=== PATIENT | female | born 1950 | race Two or more races ===

== ENCOUNTER 2019-01-21 13:57 | Outpatient (CLI) | payer OTHER ==
[~2019-01-21 13:57] MED LIST: DIGITEK250 MCG PO; LEXAPRO5 MG PO; LOPRESSOR5 MG/5 ML IV; PRILOSEC10 MG PO
== END 2019-01-21 13:59 | disposition home or self-care (01) ==
LOC: MAMO-SONO 13:57
DX: Z12.31 Encounter for screening mammogram for malignant neoplasm of breast (principal); Z87.898 Personal history of other specified conditions; N64.4 Mastodynia; N95.1 Menopausal and female climacteric states; Z78.9 Other specified health status; Z78.0 Asymptomatic menopausal state; N60.11 Diffuse cystic mastopathy of right breast; N60.12 Diffuse cystic mastopathy of left breast; R92.2 Inconclusive mammogram

== ENCOUNTER → 2019-08-09 | Outpatient (CLI) | payer OTHER | END | disposition home or self-care (01) | LOC: RAD 09:51 | DX: M79.644 Pain in right finger(s) (principal) ==

== ENCOUNTER 2020-11-16 15:09 | Outpatient (CLI) | payer OTHER | END 2020-11-16 15:15 | disposition HB | LOC: RAD 15:09 | PROVIDERS: ATTEND Orthopaedic Surgery | DX: M25.812 Other specified joint disorders, left shoulder (principal); M25.512 Pain in left shoulder; M79.622 Pain in left upper arm ==

== ENCOUNTER 2020-12-01 10:34 | Outpatient (CLI) | payer OTHER | END 2020-12-01 10:38 | disposition home or self-care (01) | LOC: NUCLEAR 10:34 | PROVIDERS: ATTEND Orthopaedic Surgery | DX: M81.0 Age-related osteoporosis without current pathological fracture (principal) ==

== ENCOUNTER 2021-09-11 10:40 | Outpatient (CLI) | payer OTHER | END 2021-09-11 10:50 | disposition home or self-care (01) | LOC: RAD 10:40 | PROVIDERS: ATTEND Internal Medicine | DX: I10 Essential (primary) hypertension (principal); Z01.810 Encounter for preprocedural cardiovascular examination; E66.8 Other obesity; M54.59 Other low back pain; K80.12 Calculus of gallbladder with acute and chronic cholecystitis without obstruction; K80.20 Calculus of gallbladder without cholecystitis without obstruction; E78.89 Other lipoprotein metabolism disorders ==

== ENCOUNTER 2021-09-14 09:42 | Outpatient (CLI) | payer OTHER | END 2021-09-14 09:50 | disposition home or self-care (01) | LOC: SONOGRAMA 09:42 | PROVIDERS: ATTEND Internal Medicine | DX: R10.84 Generalized abdominal pain (principal); E66.8 Other obesity; E78.89 Other lipoprotein metabolism disorders; I10 Essential (primary) hypertension; K80.20 Calculus of gallbladder without cholecystitis without obstruction; K80.12 Calculus of gallbladder with acute and chronic cholecystitis without obstruction; M54.59 Other low back pain; Z01.810 Encounter for preprocedural cardiovascular examination ==

== ENCOUNTER 2022-05-01 15:34 | Outpatient (CLI) | payer OTHER | END 2022-05-01 15:42 | disposition home or self-care (01) | LOC: RAD 15:34 | PROVIDERS: ATTEND Chiropractor | DX: M99.01 Segmental and somatic dysfunction of cervical region (principal); M99.02 Segmental and somatic dysfunction of thoracic region; M99.03 Segmental and somatic dysfunction of lumbar region; M54.51 Vertebrogenic low back pain ==

== ENCOUNTER 2023-01-20 13:00 | Outpatient (CLI) | payer OTHER | END 2023-01-20 13:05 | disposition home or self-care (01) | LOC: MAMO-SONO 13:00 | PROVIDERS: ATTEND Internal Medicine | DX: Z12.31 Encounter for screening mammogram for malignant neoplasm of breast (principal); N60.12 Diffuse cystic mastopathy of left breast ==

== ENCOUNTER 2023-01-24 13:05 | Outpatient (CLI) | payer OTHER | END 2023-01-24 13:07 | disposition home or self-care (01) | LOC: NUCLEAR 13:05 | PROVIDERS: ATTEND Internal Medicine | DX: M81.0 Age-related osteoporosis without current pathological fracture (principal) ==

== ENCOUNTER 2024-05-27 13:41 | Outpatient (CLI) | payer OTHER | END 2024-05-27 13:51 | disposition home or self-care (01) | LOC: MAMO-SONO 13:41 | PROVIDERS: ATTEND Obstetrics & Gynecology Gynecology | DX: N64.4 Mastodynia (principal); N63.0 Unspecified lump in unspecified breast; Z12.31 Encounter for screening mammogram for malignant neoplasm of breast; N60.19 Diffuse cystic mastopathy of unspecified breast ==

== ENCOUNTER 2025-06-30 10:36 | Outpatient (CLI) | payer OTHER | END 2025-06-30 10:37 | disposition home or self-care (01) | LOC: NUCLEAR 10:36 | PROVIDERS: ATTEND Obstetrics & Gynecology Gynecology | DX: M81.0 Age-related osteoporosis without current pathological fracture (principal) ==